=== PATIENT | female | born 1940 | race Caucasian/White ===

== ENCOUNTER → 2016-10-19 | Outpatient (CLI) | payer MEDICARE, OTHER ==
--- NOTE | 2016-10-19 17:04 | RADRPT ---
PROCEDURE: Right knee radiographs. CLINICAL INDICATION: Right knee pain. TECHNIQUE: Four views. Weight bearing. Frontal, lateral, oblique, and patellar view. COMPARISON: 10/28/2012. FINDINGS: There is no fracture or dislocation. There is a small joint effusion. There are degenerative changes with osteophytes arising from all 3 joint are large. There is medial and lateral joint compartment narrowing and subarticular sclerosis. There is no lytic or blastic lesion. There is no radiopaque foreign body. IMPRESSION: 1. Small joint effusion. 2. Moderate degenerative change. 3. Otherwise unremarkable images of the right knee. RPTAT: QQ .Doug Moody MD, MD Date Time Electronically viewed and signed by .Doug Moody MD, MD on 10/19/2016 17:03 .R/
== END | disposition home or self-care (01) ==
LOC: HKI 13:37
PROVIDERS: ATTEND Orthopaedic Surgery
DX: M25.561 Pain in right knee (principal); M17.11 Unilateral primary osteoarthritis, right knee
CPT/HCPCS: 20610; 73564; G0463; J7327